=== PATIENT | female | born 1985 | race Caucasian/White ===

== ENCOUNTER 2018-03-29 13:13 | Day surgery (SDC) | payer BC ==
[2018-03-29] MEDS ORDERED: Lidocaine 1%/Sod Bicarbonate in NS 8.4% 1 ML Syringe IDERM PRN (13:38)
[2018-03-29] MEDS ORDERED: Midazolam 1 MG/ML 2 ML SDV ONE (13:55)
[2018-03-29] MEDS ORDERED: fentaNYL 250 MCG/5 ML SDV ONE (13:55)
[2018-03-29] MEDS ORDERED: Propofol 200 MG/20 ML SDV ONE (13:55)
[2018-03-29] MEDS ORDERED: Lidocaine 1% with EPINEPHrine 1:100,000 20 ML MDV ONE (13:55)
[2018-03-29] MEDS ORDERED: Bupivacaine 0.5%/EPINEPHrine 1:200,000 50 ML MDV ONE (13:56)
[2018-03-29] MEDS ORDERED: Ondansetron 4 MG/2 ML SDV ONE (13:58)
[2018-03-29] MEDS ORDERED: Dexamethasone 4 MG/ML 5 ML MDV ONE (13:58)
[2018-03-29] MEDS: Lactated Ringers 1,000 ML IV SCH ×2 (14:00→16:12)
--- NOTE | 2018-03-29 14:06 | PCM.PREANE ---
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) Intubation History: Unknown - Review of Systems General: No Symptoms Pulmonary: No Symptoms Cardiovascular: No Symptoms Gastrointestinal: No Symptoms Neurological: No Symptoms Other: Reports: None - Physical Assessment NPO Status Date: 03/29/18 NPO Status Time: 10:00 (clear liquids ) Pulse: 86 O2 Sat by Pulse Oximetry: 97 Respiratory Rate: 14 Blood Pressure: 125/76 Temperature: 37.1 C Height: 1.63 m Weight: 66.3 kg ASA Class: 2 Mental Status: Alert & Oriented x3 Airway Class: Mallampati = 1 Dentition: Reports: Normal Dentition Thyro-Mental Finger Breadths: 3 Mouth Opening Finger Breadths: 5 ROM/Head Extension: Full Lungs: Clear to Auscultation, Normal Respiratory Effort Cardiovascular: Regular Rate, Regular Rhythm - Blood Blood Available: No - Anesthesia Plan Pre-Op Medication Ordered: None - Acknowledgements Anesthesia Type Planned: General Anesthesia Pt an Appropriate Candidate for the Planned Anesthesia: Yes Alternatives and Risks of Anesthesia Discussed w Pt/Guardian: Yes Pt/Guardian Understands and Agrees with Anesthesia Plan: Yes PreAnesthesia Questionnaire Immunologic History: Reports: Other (See Below) (ITP history which as resolved) - CURRENT (IN HOUSE) MEDS Current Meds: Current Medications Discontinued Medications Bupivacaine HCl/Epinephrine Bitart (Marcaine 0.5%/Epinephrine 1:200,000) Confirm Administered Dose 50 ml .ROUTE .STK-MED ONE Stop: 03/29/18 13:57 Dexamethasone (Dexamethasone) Confirm Administered Dose 20 mg .ROUTE .STK-MED ONE Stop: 03/29/18 13:59 Fentanyl (Sublimaze) Confirm Administered Dose 250 mcg .ROUTE .STK-MED ONE Stop: 03/29/18 13:56 Lidocaine/Epinephrine (Xylocaine 1% With Epinephrine 1:100,000) Confirm Administered Dose 20 ml .ROUTE .STK-MED ONE Stop: 03/29/18 13:56 Midazolam HCl (Versed 1 Mg/Ml) Confirm Administered Dose 2 mg .ROUTE .STK-MED ONE Stop: 03/29/18 13:56 Ondansetron HCl (Zofran) Confirm Administered Dose 4 mg .ROUTE .STK-MED ONE Stop: 03/29/18 13:59 Propofol (Diprivan 20 Ml) Confirm Administered Dose 200 mg .ROUTE .STK-MED ONE Stop: 03/29/18 13:56
--- NOTE | 2018-03-29 14:08 | PCM.HP ---
H&P History of Present Illness - General Date of Service: 03/29/18 Admit Problem/Dx: Acute appendicitis Source of Information: Patient, Family, Provider - History of Present Illness Initial Comments - Free Text/Narative: 32-year-old female was in her usual state of excellent health until 4 days prior to her [place] clinic visit and her visit with us, when she experienced moderately severe periumbilical cramping and a loose watery stool. The pain waxed and waned over the next several days but was not severe enough to prevent her from eating and going to work. She had no further episodes of diarrhea. Yesterday however she experienced worse periumbilical discomfort which migrated to her right lower quadrant. The pain prevented her from sleeping all of last night. She also had increasing pain with ambulation. She had mild nausea but no emesis. She had no relief with Pepto-Bismol and milk of magnesia. Because of the continuous and worsening pain she presented to the [place] walk[facility]in [facility] where she was seen by staff. Her temperature was 99. She had right lower quadrant abdominal tenderness. A white blood cell count was elevated. A CT of her abdomen and pelvis had imaging features consistent with early acute uncomplicated appendicitis. I was called to evaluate her for surgery. Past Medical History Hematologic History: Reports: Idiopathic Thrombocytopenia (Which apparently resolved spontaneously after medical management and has not recurred.) H&P Review of Systems - Review of Systems: Review Of Systems: ROS reveals no pertinent complaints other than HPI. Exam - Exam Exam: See Below - Exam General: Alert, Oriented, Cooperative HEENT: EOMI, Hearing Intact Neck: Supple, Trachea Midline, Full Range of Motion Lungs: Clear to Auscultation, Normal Respiratory Effort Cardiovascular: Regular Rate, Regular Rhythm, Normal S1, Normal S2 GI/Abdominal Exam: Tender (Right lower quadrant) (Female) Exam: Deferred Rectal (Female) Exam: Deferred Back Exam: Normal Inspection, Full Range of Motion Skin: Warm, Dry, Intact Neuro Extensive - Mental Status: Alert, Oriented x3, Normal Mood/Affect, Normal Cognition Psychiatric: Alert, Normal Affect, Normal Mood - Problem List (1) Acute appendicitis SNOMED Code(s): 39343346 ICD Code: K35.80 - UNSPECIFIED ACUTE APPENDICITIS Status: Acute Current Visit: Yes Problem List Initiated/Reviewed/Updated: Yes Orders Last 24hrs: Active Orders 24 hr Category Date Time Status Patient to Empty Bladder [RC] ASDIRECTED Care 03/29/18 14:02 Ordered Verify Patient Consent Obtain [RC] ASDIRECTED Care 03/29/18 14:02 Ordered Nothing Per Oral Diet [DIET] Diet 03/29/18 Lunch Ordered Ertapenem [INVanz] 1 gm Med 03/29/18 14:02 Ordered Sodium Chloride 0.9% [Normal Saline] 100 ml IV ONETIME Sodium Chloride 0.9% @ 125 MLS/HR (1000ml) Med 03/29/18 14:15 Ordered Sodium Chloride 0.9% [Normal Saline] 1,000 ml IV ASDIRECTED Schedule Procedure [COMM] Urgent Oth 03/29/18 14:01 Ordered Sequential Compression Device [OM.PC] Routine Oth 03/29/18 14:02 Ordered Resuscitation Status Routine Resus Stat 03/29/18 14:02 Ordered Assessment/Plan Comment:: Impression: Acute appendicitis. She would benefit from surgery. Plan: Laparoscopic possible open appendectomy. The benefits and risks of the procedure were explained to the patient and her as well as the alternatives. They have asked me to proceed without reservation after having all of her questions and concerns answered.
[2018-03-29] MEDS ORDERED: Sodium Chloride 0.9% 1,000 ML IV SCH (14:15)
[2018-03-29] MEDS ORDERED: Ertapenem 1 GM in Sodium Chloride 0.9% 100 ML IV ONE (14:30)
[2018-03-29] MEDS ORDERED: Ertapenem 1 GM Vial ONE (14:34)
[2018-03-29] MEDS ORDERED: HYDROmorphone 0.5 MG/0.5 ML Syringe ONE ×2 (14:36)
[2018-03-29] MEDS ORDERED: Neostigmine Methylsulfate 1 MG/ML 5 ML Syringe ONE (14:59)
[2018-03-29] MEDS ORDERED: Sodium Chloride 0.9% 10 ML Syringe FLUSH PRN (15:14)
[2018-03-29] MEDS ORDERED: Haloperidol Lactate 5 MG/ML SDV IVPUSH ONE (15:24)
[2018-03-29] MEDS ORDERED: HYDROmorphone 0.5 MG/0.5 ML Syringe IVPUSH ONE (15:24)
[2018-03-29] MEDS ORDERED: diphenhydrAMINE 50 MG/ML SDV IVPUSH PRN (15:24)
[2018-03-29] MEDS ORDERED: Meperidine PF 50 MG/ML Syringe IVPUSH PRN (15:24)
[2018-03-29] MEDS ORDERED: Ondansetron 4 MG/2 ML SDV IVPUSH PRN (15:24)
[2018-03-29] MEDS ORDERED: fentaNYL 100 MCG/2 ML SDV IVPUSH PRN (15:24)
--- NOTE | 2018-03-29 15:24 | PCM.POSTAN ---
POST ANESTHESIA ASSESSMENT - MENTAL STATUS Mental Status: Somnolent - VITAL SIGNS Pulse Rate: 77 SaO2: 98 Resp Rate: 14 Blood Pressure: 144/72 Temperature: 36.7 C - RESPIRATORY Respiratory Status: Respiratory Rate WNL, Airway Patent, O2 Saturation Stable, Supplemental Oxygen - CARDIOVASCULAR CV Status: Pulse Rate WNL, Blood Pressure Stable - GASTROINTESTINAL GI Status: No Symptoms - PAIN Pain Score: 0 - POST OP HYDRATION Hydration Status: Adequate & Stable
--- NOTE | 2018-03-29 15:26 | PCM.OPNOTE ---
- General Post-Op/Procedure Note Date of Surgery/Procedure: 03/29/18 Operative Procedure(s): Laparoscopic appendectomy Findings: Acute appendicitis with luminal distention and with adhesions of the cecum to the right lower quadrant. Pre Op Diagnosis: Acute appendicitis Post-Op Diagnosis: Same Anesthesia Technique: General ET Tube, Local Primary Surgeon: David Hernandez Pathology: None EBL in mLs: 2 Complications: None Condition: Good Free Text/Narrative:: After adequate general endotracheal tube anesthesia was obtained the patient's abdomen was prepped and draped in usual fashion for a laparoscopic possible open appendectomy. A supraumbilical incision was made with a 15 blade after local analgesia was given. I used a 15 blade to enter the midline followed by insertion of a 12 mm camera port. CO2 pneumoperitoneum was obtained. On exploration the cecum had adhesions between it and the abdominal wall. The appendix was distended nonperforated, nonruptured and with no gangrene. A 5 mm working port was placed in the suprapubic region and in the left lower quadrant. I grasped the appendix and made a window in the appendiceal mesentery with scissors. I fired the stapler across the mesentery and next the base of the appendix. The appendix was placed in a bag and removed through the umbilicus. I then irrigated out the right lower quadrant with saline solution. The area was hemostatic and there was no obvious bowel injury. I decannulated the abdomen under direct vision with no bleeding from the port sites. CO2 pneumoperitoneum was completely released. I closed the umbilicus with a figure- of-eight 0 Vicryl suture. After additional local analgesia was given I closed the subcutaneous tissues and skin with Vicryl as well. Steri-Strips and gauze used for the dressing. Professor [employer] photographs were taken for the patient and for the medical record.
--- NOTE | 2018-03-29 15:48 | PCM48HPAN ---
Post Anesthesia Note - EVALUATION WITHIN 48HRS OF ANESTHETIC Vital Signs in Normal Range: Yes Patient Participated in Evaluation: Yes Respiratory Function Stable: Yes Airway Patent: Yes Cardiovascular Function Stable: Yes Hydration Status Stable: Yes Pain Control Satisfactory: Yes Nausea and Vomiting Control Satisfactory: Yes Mental Status Recovered: Yes
[2018-03-29] MEDS ORDERED: Acetaminophen/Codeine 300-30 MG Tab PO PRN (16:55)
== END 2018-03-29 18:20 | disposition home or self-care (01) ==
LOC: JD.ED 13:13 → JD.SDS 13:13 → EDSTATUS 13:20 → JD.SDS 18:20
PROVIDERS: ATTEND Surgery
DX: K35.3 Acute appendicitis with localized peritonitis (principal); K66.0 Peritoneal adhesions (postprocedural) (postinfection); F17.200 Nicotine dependence, unspecified, uncomplicated
CPT/HCPCS: 00840; A9270-GY; J1100; J1170; J1335; J2250; J2405; J2704; J2710; J3010; J7120